=== PATIENT | male | born 1995 | race Hispanic/Latino ===

== ENCOUNTER 2020-10-20 19:01 | Emergency (ER) | payer OTHER, SELFPAY ==
--- NOTE | ~2020-10-20 | XR_ITS ---
EXAMINATION: XR chest 1V portable INDICATION: Cough, COVID 19 positive TECHNIQUE: Portable AP chest at 1828 hours COMPARISON: 09/09/2013 FINDINGS: There are minimal opacities of the lung bases. No pleural effusion or pneumothorax is ident ified. The cardiomediastinal silhouette is normal. IMPRESSION: 1. Minimal bibasilar airspace opacities, consistent with atelectasis versus pneumonia. Reviewed, dictated and finalized at location A. PICKER IMPRESSION: 1. Minimal bibasilar airspace opacities, consistent with atelectasis versus pne umonia.
[2020-10-20 19:06] VITALS: BP 140/82; PULSE 80; RESP 18; TEMP 36.6; O2SAT 100
--- NOTE | 2020-10-20 19:16 | PC.NURSE ---
while ambulating to room 7, pt 97% on RA.
--- NOTE | 2020-10-20 19:57 | ED.URI ---
HPI - URI/Sore Throat General Chief Complaint: Upper Respiratory Infection Stated Complaint: COVID + 28DEC URI Time Seen by Provider: 10/20/20 19:27 Source: patient Mode of arrival: ambulatory Limitations: no limitations History of Present Illness HPI Narrative: Patient is a 24-year-old male who presents complaining of shortness of breath and chest tightness. Patient reports Covid positive on 10/16. He reports increased cough and shortness of breath starting today. He denies nausea, vomiting or diarrhea. Patient's O2 saturation 100% on room air upon arrival. Patient is aware of need for quarantine Related Data Home Medications Medication Instructions Recorded Confirmed No Home Medications 10/20/20 10/20/20 Allergies Allergy/AdvReac Type Severity Reaction Status Date / Time No Known Allergies Allergy Unverified 10/20/20 19:09 Review of Systems Review of Systems: Narrative: CONSTITUTIONAL: Denies fever, chills, or sweats. EYES: Denies visual changes, redness, or discharge. ENT: Denies rhinorrhea, congestion, sore throat, or otalgia. CARDIOVASCULAR: Denies chest pain, palpitations, or edema. RESPIRATORY: Reports cough and dyspnea. GASTROINTESTINAL: Denies abdominal pain, nausea, vomiting, or diarrhea. GENITOURINARY: Denies dysuria or hematuria. SKIN: Denies rash or itching. MUSCULOSKELETAL: Denies back pain, joint pain, or myalgia. NEUROLOGIC: Denies headache, numbness, dizziness, or weakness. PSYCHIATRIC: Denies anxiety or depression. PMFSH Past Medical History Medical History (Updated 10/20/20 @ 20:06 by NESTOR De La Garza) No significant past medical history Surgical History Surgical History (Updated 10/20/20 @ 19:59 by NESTOR De La Garza) No significant past surgical history Family History Family History (Updated 10/20/20 @ 19:59 by NESTOR De La Garza) Other No significant family history Social History Social History (Updated 10/20/20 @ 20:00 by NESTOR De La Garza) Smoking status: Never smoker Alcohol intake: current Alcohol use details: Occasional Substance use: never Gender identity (if verbalized by the patient): Male Exam Narrative: Exam Narrative: GENERAL: Well-appearing, well-nourished, and in no acute distress. HEAD: Normocephalic, atraumatic. EYES: No redness or drainage. ENT: Mucous membranes pink and moist. CHEST: No respiratory distress. Clear to auscultation. HEART: Regular rate and rhythm. EXTREMITIES: Normal range of motion. SKIN: Warm, dry, no rash. NEURO: No focal deficits. Alert and oriented x3. Gait steady. PSYCH: Normal affect. No signs of depression or anxiety. Course Vital Signs Vital signs: Vital Signs Temperature 36.6 C 10/20/20 19:06 Pulse Rate 80 10/20/20 19:06 Respiratory Rate 18 10/20/20 19:06 Blood Pressure 140/82 10/20/20 19:06 Pulse Oximetry 100 10/20/20 19:06 Temperature 36.6 C 10/20/20 19:06 Pulse Rate 80 10/20/20 19:06 Respiratory Rate 18 10/20/20 19:06 Blood Pressure 140/82 10/20/20 19:06 Pulse Oximetry 100 10/20/20 19:06 MDM - URI/Sore Throat MDM Narrative Medical decision making narrative: Patient's chest x-ray shows probable Covid pneumonia. Patient's O2 sats 100% at this time. Discussed reasons to return to ED such as increasing shortness of breath or chest pain. Patient is aware. Patient is aware of the need to quarantine patient is stable for discharge to home with outpatient follow-up as needed. Differential Diagnosis Differential diagnosis: Likely upper respiratory infection, viral infection, bronchitis and other (Covid, pneumonia) Imaging Data Radiologist's impression: ITS Impressions Chest X-Ray 10/20/20 19:37 IMPRESSION: 1. Minimal bibasilar airspace opacities, consistent with atelectasis versus pneumonia. Critical Care Time Critical Care Time Critical Care Time: No Discharge Plan Discharge Clinical Impression: COVID-19
[2020-10-20 20:13] VITALS: BP 124/75; PULSE 84; RESP 18; O2SAT 99
== END 2020-10-20 20:14 | disposition home or self-care (01) ==
PROVIDERS: Emergency Provider Nurse Practitioner
DX: U07.1 COVID-19 (principal)
CPT/HCPCS: 71045; 99283

== ENCOUNTER 2024-08-17 09:29 | Outpatient (CLI) | payer OTHER, SELFPAY ==
--- NOTE | 2024-09-07 11:49 | P.SLEEP_ITS ---
Sleep Study Date of Study: 08/17/24 Ordering Provider: Max Arguello, AUTO JOB ESTIMATOR Interpreting Physician: Jossie Calvo MD Sleep Study Type: Multiple Sleep Latency Test Height: 1.68 m Weight: 83.461 kg Body Mass Index: 29.7 Neck Circumference (inches): 16 [place]: 7 Reason for Sleep Study Snoring, excessive daytime sleepiness Sleep History Tono Bush is a 28-year-old man with allergic rhinitis, GERD, snoring, no n restorative sleep and excessive daytime sleepiness. He wakes up frequently during the night. He occasionally has difficulty breathing through his nose. He had a previous sleep study in November in [place] but says he was never called with the results. He was sent by his ENT for further evaluation. He rarely awakens from sleep feeling short of breath. He rarely awakens at night with heartburn, belching or coughing. He occasionally snores and occasionally this is loud enough that others complain about it. He occasionally has difficulty sleeping when he has a cold. He rarely wakes up gasping for breath at night. He does not have breathing problems at night observed by others. He frequently sweats excessively at night. He rarely notices his heart pounding or beating irregularly at night. He rarely falls asleep during the day, never falls asleep involuntarily or while driving. He does not have loss of muscle tone with strong emotion. He occasionally has daytime difficulties due to excessive sleepiness. He does not feel paralyzed on waking or falling asleep. He does not experience vivid dreamlike scenes upon awakening or falling asleep. He does not feel afraid to go to sleep. He occasionally has nightmares. He rarely remembers his dreams. He occasionally has racing thoughts. He occasionally feels sad or depressed. He frequently has anxiety. He occasional ly notices parts of his body jerking. He rarely kicks at night, rarely has crawling and aching feelings in his legs. He rarely has any kind of leg pain during the night. He frequently has morning jaw pain and frequently grinds his teeth during sleep. He frequently is bothered by pain during the day. He rarely is awakened by pain during the night. He frequently wakes up feeling stiff in the morning. He constantly wakes up with sore achy muscles and pain in the neck and spine. He has fatigue, headaches and has difficulty relaxing. His normal bedtime is between 11:00 p.m. and 12 midnight, falling asleep within 15-20 minutes. He does not wake up a specific number of times during the night but he may try to get comfortable and change positions at night. If he does awaken he may be able to return to sleep within 20-30 minutes. His normal wake time is 9:00 a.m.. On weekends, bedtime is between midnight and 1:00 a.m., wake time is 10:00 a.m.. He takes naps in the afternoon or evening. A short nap lasting 10-15 minutes is not refreshing. He is usually drowsy for 2 hours after waking. He feels better in the evening compared to other times of day. Habits: Tobacco: former smoker, stopped 3 years ago Caffeine: 2 cups per day Alcohol: none Recreational substances: none PMFSH Past Medical History Medical History Allergic rhinitis Anxiety and depression GERD (gastroesophageal reflux disease) Headache Hearing loss Vitamin D deficiency Surgical History Surgical History No significant past surgical history Family History Family History Other Alcoholism Diabetes mellitus High cholesterol Hypertension Social History Social History Smoking status: Never smoker Alcohol intake: current Alcohol use details: Occasional Substance use: never Gender identity (if verbalized by the patient): Male Medications Home Medications Medication Instructions Recorded Confirmed Type No Home Medications 10/20/20 10/20/20 History albuterol sulfate 90 mcg/actuation 1 inh inhalation QID PRN shortness 10/20/20 Rx aerosol inhaler of breath or wheezing #6.7 grams Sleep Procedure The recording montage for the MSLT includes central EEG (C3-A2, C4-A1) and occipital (O1-A2, O2-A1) derivations, left and right eye electrooculograms (EOGs), mental/submental electromyogram (EMG), and electrocardiogram (EKG). Nap Summary: Study started at 07:05:33 AM. Nap 1 sleep latency was 11.9 minutes, REM sleep was not present. The patient said that sleep occurred without dreaming. Nap 2 sleep latency was 2.3 minutes, REM sleep was present. The patient said that sleep occurred without dreaming. Nap 3 sleep latency was 6.3 minutes, REM sleep was not present. The patient said that sleep did not occur. Nap 4 sleep latency was 2.0 minutes, REM sleep was not present. The patient said that sleep occurred without dreaming. Nap 5 sleep latency was 4.7 minutes, REM sleep was not present. The patient said that sleep did not occur. There were 5 nap opportunities with a mean sleep latency of 5.5 minutes. The patient slept on 5 naps and REM sleep (SOREM) was present in 1 naps. The patient perceived sleep on naps 1 2 and 4. The patient did not perceive dreaming on any of the naps. Sleep Architecture NA Respiratory Analysis NA Arousals NA Periodic Limb Movements NA Oximetry Data NA Snoring Profile NA Cardiac Profile NA EEG Profile NA Assessment and Plan Assessment and Plan (1) Idiopathic hypersomnolence: Code(s): G47.11 - Idiopathic hypersomnia with long sleep time Status: Acute Assessment and Plan: This multiple sleep latency test on August 18, 2024 shows a mean sleep latency of 5.5 minutes with a sleep onset REM period on the second nap. This is consistent with idiopathic hypersomnolence. This is not consistent with narcolepsy. The patient did not have early REM onset on the nocturnal polysomnogram the night prior to this study. His sleep history indicates that he often gets between 9 and 10 hours of sleep at night and has excessive sleepiness during the day. The patient should be encouraged to get adequate sleep and optimize sleep hygiene. He needs to be strongly encouraged not to drive while drowsy. He may benefit from wake promoting medications or stimulants as needed to maintain alertness for daytime activities. Recommendations to improve sleep quality include: ?Practice a bedtime routine and keep the same sleep schedule including bedtime and wake up time, even on the weekends. Consistency makes it much easier to fall asleep and wake easily. ?If you have trouble sleeping at night, avoid naps, especially in the late afternoon. However, short naps lasting approximately 20 minutes can help alleviate daytime fatigue, sleepiness, and even provide cognitive benefit. Naps longer than 30 minutes can cause sleep inertia, a period of reduced alertness and cognitive performance after waking. ?Exercise daily. ?Maintain a sleep environment conducive to sleep. The bedroom should be comfortably cool. In population studies, nocturnal environmental light and noise significantly impact sleep quality and quantity. Use of blackout curtains, ear p lugs, or sound machines may help promote an optimal sleep environment for individuals with sleep disruptions due to environmental stimuli. ?Sleep on a comfortable mattress and pillows. ?Regular bright light exposure in the mornings may help to maximize alertness and maintain a regular circadian rhythm. Studies in extreme latitudes where sunlight is minimal in the winter have found that an hour of exposure to white light in the morning helped subjects go to sleep earlier and wake earlier. Exposure to blue light in the morning may have more robust effects on the stability of the circadian rhythm and has been shown to improve daytime fatigue and sleepiness. ?Avoid cigarettes, caffeine, and heavy meals in the evening. While alcohol use does seem to reduce the time it takes to fall asleep, studies have reported that evening alcohol intake can cause more waking time or light sleep in the second half of the night and reduce self-reported sleep quality. Evening nicotine is associated with lower sleep efficiency and more awake time during the night. ?Wind down with quiet activities that may promote sleep, such as reading with a dim light. Avoid use of electronics at least 30 minutes before habitual bedtime and in the middle of the night if nocturnal awakenings occur. The blue light emitted from computer screens and hand-held devices can suppress natural melatonin production, resulting in difficulty falling asleep; however, the exact duration of use and intensity of lighting that cause this effect are variable in the literature. ?If you cannot sleep, do not look at a clock. Go into another room and do something relaxing until you feel drowsy enough to fall asleep again. Then return to bed. Data The data obtained during this sleep study is adequate for interpretation. Certification This sleep study has been reviewed by a board certified sleep medicine physician.
--- NOTE | 2024-09-07 12:45 | WPDSLEEPSTUD ---
Sleep Study Date of Study: 08/17/24 Ordering Provider: Max Arguello, IRIDOLOGIST Interpreting Physician: Jossie Calvo MD Sleep Study Type: Polysomnogram Height: 1.68 m Weight: 83.461 kg Body Mass Index: 29.7 Neck Circumference (inches): 16 [place]: 7 Reason for Sleep Study Morning headaches, non restorative sleep Sleep History Tono Bush is a 28-year-old man with allergic rhinitis, GERD, snoring, non restorative sleep and excessive daytime sleepiness. He wakes up frequently during the night. He occasionally has difficulty breathing through his nose. He had a previous sleep study in November in [place] but says he was never called with the results. He was sent by his ENT for further evaluation. He rarely awakens from sleep feeling short of breath. He rarely awakens at night with heartburn, belching or coughing. He occasionally snores and occasionally this is loud enough that others complain about it. He occasionally has difficulty sleeping when he has a cold. He rarely wakes up gasping for breath at night. He does not have breathing problems at night observed by others. He frequently sweats excessively at night. He rarely notices his heart pounding or beating irregularly at night. He rarely falls asleep during the day, never falls asleep involuntarily or while driving. He does not have loss of muscle tone with strong emotion. He occasionally has daytime difficulties due to excessive sleepiness. He does not feel paralyzed on waking or falling asleep. He does not experience vivid dreamlike scenes upon awakening or falling asleep. He does not feel afraid to go to sleep. He occasionally has nightmares. He rarely remembers his dreams. He occasionally has racing thoughts. He occasionally feels sad or depressed. He frequently has anxiety. He occasionally notices parts of his body jerking. He rarely kicks at night, rarely has crawling and aching feelings in his legs. He rarely has any kind of leg pain during the night. He frequently has morning jaw pain and frequently grinds his teeth during sleep. He frequently is bothered by pain during the day. He rarely is awakened by pain during the night. He frequently wakes up feeling stiff in the morning. He constantly wakes up with sore achy muscles and pain in the neck and spine. He has fatigue, headaches and has difficulty relaxing. His normal bedtime is between 11:00 p.m. and 12 midnight, falling asleep within 15-20 minutes. He does not wake up S a specific number of times during the night but he may try to get comfortable and change positions at night. If he does awaken he may be able to return to sleep within 20-30 minutes. His normal wake time is 9:00 a.m.. On weekends, bedtime is between midnight and 1:00 a.m., wake time is 10:00 a.m.. He takes naps in the afternoon or evening. A short nap lasting 10-15 minutes is not refreshing. He is usually drowsy for 2 hours after waking. He feels better in the evening compared to other times of day. Habits: Tobacco: former smoker, stopped 3 years ago Caffeine: 2 cups per day Alcohol: none Recreational substances: none PMFSH Past Medical History Medical History (Updated 09/07/24 @ 13:02 by Jossie Calvo MD) Allergic rhinitis Anxiety and depression GERD (gastroesophageal reflux disease) Headache Hearing loss Vitamin D deficiency Surgical History Surgical History (Updated 10/20/20 @ 19:59 by Arielle Mills, CONTINUOUS IMPROVEMENT COORDINATOR) No significant past surgical history Family History Family History (Updated 09/07/24 @ 12:55 by Jossie Calvo MD) Other Alcoholism Diabetes mellitus High cholesterol Hypertension Social History Social History (Updated 10/20/20 @ 20:00 by Arielle Mills, CONTINUOUS IMPROVEMENT COORDINATOR) Smoking status: Never smoker Alcohol intake: current Alcohol use details: Occasional Substance use: never Gender identity (if verbalized by the patient): Male Medications Home Medications Medication Instructions Recorded Confirmed Type No Home Medications 10/20/20 10/20/20 History albuterol sulfate 90 mcg/actuation 1 inh inhalation QID PRN shortness 10/20/20 Rx aerosol inhaler of breath or wheezing #6.7 grams Sleep Procedure A full night polysomnogram using the [employer] multi-channel system recorded the standard physiologic parameters including EEG, EOG, submentalis EMG, anterior tibialis EMG, EKG, body position, nasal and oral airflow using nasal pressure sensor and thermistor. Respiratory parameters of chest and abdominal movements were recorded with Respiratory Inductance Plethysmography belts. Oxygen saturation was recorded by pulse oximetry. Video monitoring was also performed. Sleep stages, periodic limb movements, and EEG arousals were scored in 30 second epochs according to the criteria of the AASM Scoring Manual. The Apnea-Hypopnea Index was calculated using CMS guidelines for definition of hypopnea while scoring respiratory events. Sleep Architecture The total recording time was 468.2 minutes. The total sleep time was 376.5 minutes. Sleep latency was 58.8 minutes. REM latency was 187.0 minutes. Sleep efficiency was 80.4%. The patient had 29 awakenings for an awakening index of 4.6. Wake after sleep onset time was 32.5 minutes. The patient spent 33.5 minutes, 8.9% of total sleep time in Stage N1. The patient spent 228.0 minutes, 60.6% in Stage N2. The patient spent 69.0 minutes, 18.3% in Stage N3. The patient spent 46.0 minutes, 12.2% in Stage REM sleep. Respiratory Analysis The patient had 17 hypopneas, no obstructive apneas, 2 mixed apneas, and 12 central apneas for an overall Apnea Hypopnea Index of 4.9. The REM Apnea Hypopnea Index was 5.2. The NREM Apnea Hypopnea Index was 4.9. The patient had a Central Apnea Hypopnea Index of 1.9. There were 8 Respiratory Effort Related Arousals resulting in a RERA index of 1.3 events per hour. The Respiratory Disturbance Index is 6.2 events per hour. There was no evidence of Anish-Jones Respirations. Arousals There were 100 total arousals for an arousal index of 15.9. There were 51 spontaneous arousals for an index of 8.1. There were 14 arousals due to respiratory events for an index of 2.2. There were 13 arousals due to periodic limb movements for an index of 2.1. There were 22 arousals due to isolated limb movements for an index of 3.5. Periodic Limb Movements The patient had 47 isolated limb movements with an index of 7.5. The patient had 74 periodic limb movements with an index of 11.8. Patient had a total of 121 limb movements with a total limb movement index of 19.3. Oximetry Data The patient had an average oxygen saturation of 94.9% in sleep with a minimum oxygen saturation of 89% and a maximum oxygen saturation of 98%. The patient had 25 oxygen desaturations that were 4% or greater resulting in an Oxygen Desaturation Index of 4.0. The patient spent no time with an oxygen saturation below 88%. Snoring Profile Snoring was scattered and mild to moderate. Cardiac Profile EKG showed normal sinus rhythm, average pulse rate of 50.1 bpm with a minimum pulse of rate of 39 bpm and a maximum pulse rate of 94 bpm. No arrhythmias noted. . EEG Profile Unremarkable, no evidence of seizures. Assessment and Plan Assessment and Plan (1) Snoring: Code(s): R06.83 - Snoring Status: Acute Assessment and Plan: This full night basic nocturnal polysomnogram on 08/17/2024 shows snoring, an overall apnea-hypopnea index of 4.9 with a minimum desaturation 89%. He does not have significant sleep disordered breathing. The supine apnea-hypopnea index is 4.7 and the nonsupine apnea-hypopnea index is 7.6, similar. The patient had a long sleep latency 58.8 minutes and a longer REM latency 187 minutes. The sleep efficiency was normal 80.4%. Sleep staging was normal. The patient did not have excessive limb movements to explain his excessive daytime sleepiness. He met criteria to proceed with a multiple sleep latency test the following morning. Please see separate report Data The data obtained during this sleep study is adequate for interpretation. Certification This sleep study has been reviewed by a board certified sleep medicine physician.
[2024-09-07 12:57] VITALS: BMI 29.7
[2024-09-07 13:16] VITALS: BMI 29.7
== END 2024-08-18 15:45 | disposition home or self-care (01) ==
LOC: ANHCSM 09:30
PROVIDERS: Visit Provider Nurse Practitioner Family
DX: G47.33 Obstructive sleep apnea (adult) (pediatric) (principal); R06.83 Snoring; G47.11 Idiopathic hypersomnia with long sleep time
CPT/HCPCS: 95805; 95810